=== PATIENT | female | born 1955 | race Caucasian/White ===

== ENCOUNTER 2023-01-04 06:39 | Day surgery (SDC) | payer MEDICARE, OTHER, SELFPAY ==
--- NOTE | 2023-01-04 | PATH_ITS ---
[facility] Accession Number: [id number] No. of containers..04 Tissue . 01 Material submitted: . PART A: esophagus, E-G Junction - GE JUNCTION PART B: esophagus - ESOPHAGUS PART C: colon - TRANSVERSE PART D: rectum - RECTUM . 01 Diagnosis: A. Gastroesophageal Junction, Biopsy: Squamocolumnar junctional mucosa with reactive features of reflux esophagitis. Up to 50 eosinophils per high power field. Negative for specialized intestinal metaplasia, dysplasia or malignancy. . B. Esophagus, Biopsy: Squamous epithelium with increased intraepithelial eosinophils (up to 16 eosinophils per high power field). Please see comment. Negative for dysplasia and malignancy. . C. Transverse Colon: Tubular adenoma. . D. Rectum: Fragments of tubular adenoma. [facility] 01/07/2023 1245 Local . 01 Comment: B) In the proper clinical setting, the histopathologic appearance would support a clinical impression of eosinophilic esophagitis. The differential diagnosis includes drug reaction, gastroesophageal reflux, and food allergies. . . 01 Electronically signed: . Nick Rowland MD, PhD, Pathologist NPI- [id number] . 01 Gross description: . Part A: GE JUNCTION: Received in formalin are 2 fragment(s) of wise, soft tissue measuring 0.3 x 0.2 x 0.2 cm to 0.2 x 0.1 x 0.1 cm submitted entirely in 1 cassette(s) Part B: ESOPHAGUS: Received in formalin is 1 fragment(s) of wise, soft tissue measuring 0.3 x 0.2 x 0.1 cm submitted entirely in 1 cassette(s) Part C: TRANSVERSE: Received in formalin is 1 fragment(s) of wise, soft tissue measuring 0.2 x 0.2 x 0.2 cm submitted entirely in 1 cassette(s) Part D: RECTUM: Received in formalin are multiple fragment(s) of wise, soft tissue measuring 1.6 x 0.7 x 0.1 cm in aggregate submitted entirely in 1 cassette(s) /CPE 01/05/2023 0642 Local . 01 Pathologist provided ICD-10: K20.0, D12.3, D12.8 . 01 CPT . 839659, 415047, 381017, 943148 Specimen Comment: A courtesy copy of this report has been sent to [phone] Performed at: 01 [facility] [address] [place] [id number] MD Wilner Siddiqi MD Phone: [phone]
[2023-01-04 07:11] VITALS: BP 149/82; PULSE 65; RESP 15; TEMP 36.3; O2SAT 96; BMI 41.9
[2023-01-04] MEDS: LACTATED RINGERS 1,000 ML 200 ML IV (07:18)
--- NOTE | 2023-01-04 07:43 | PM.HP.1 ---
History of Present Illness History of Present Illness Date Patient Seen: 01/04/23 Time Patient Seen: 07:43 Chief complaint: EGD/Colonoscopy Narrative: 67-year-old woman here for EGD and colonoscopy. EGD is for workup of globus sensation and she needs a screening colonoscopy. Please refer to the H and P from October 2022 for further detail. No interval changes in health. Patient History Medical History (Updated 12/23/22 @ 08:37 by Gisella Corbin RN) Diverticulosis GERD (gastroesophageal reflux disease) Surgical History (Updated 01/04/23 @ 07:07 by Ernesto Montague RN) H/O hand surgery Hx of colonoscopy (2017) S/P tubal ligation Family & Social History Family History Sister Hypertension Social History: household members spouse lives independently Yes Tobacco & Substance use: Smoking Status Never smoker alcohol intake current alcohol intake frequency a few times a week Substance Use Type does not use Meds Home Medications and Allergies Home Medications Medication Instructions Recorded Confirmed Type atenolol 50 mg tablet BID ##0 03/29/17 11/12/22 History hydrochlorothiazide 25 mg tablet mg QAM ##0 03/29/17 11/12/22 History hydroxyzine HCl PO 11/12/22 11/12/22 History losartan PO 11/12/22 11/12/22 History lansoprazole 30 mg capsule,delayed mg 01/04/23 History release Allergies Allergy/AdvReac Type Severity Reaction Status Date / Time aspirin [ASPIRIN] AdvReac Mild UPSET Verified 01/04/23 07:07 STOMACH metformin [METFORMIN] AdvReac Mild LIGHTHEADED, Verified 01/04/23 07:07 FAINT tetracycline [TETRACYCLINE] AdvReac Mild UPSET Verified 01/04/23 07:07 STOMACH venlafaxine [From EFFEXOR] AdvReac Mild SUICIDAL Verified 01/04/23 07:07 THOUGHTS Exam Vital Signs (past 8 hours): - 01/04/23 07:11 Temperature 97.3 F L Pulse Rate 65 Respiratory Rate 15 Blood Pressure 149/82 H Pulse Oximetry 96 Oxygen Delivery Method Room Air Oxygen Delivery Method Room Air Narrative Exam Narrative: General adult alert oriented no acute distress Assessment & Plan Assessment and plan (1) Globus sensation: Status: Acute Assessment & Plan narrative: 67-year-old with globus sensation here for EGD and screening. Overview of the procedurese discussed. Operative risks bleeding missed diagnosis intestinal injury discussed. Questions have been answered she is agreement with this plan. Time Spent With Patient Critical Care time: I spent a total of [] minutes of critical care time on this patient's care today; this time is exclusive of procedural time.
[2023-01-04 08:22] VITALS: BP 123/68; PULSE 72; RESP 16; TEMP 37.4; O2SAT 95
--- NOTE | 2023-01-04 08:24 | PM.OP.EC ---
Operative Date/Time/Diagnoses Date of procedure: 01/04/23 Time of procedure: 08:24 Pre-op diagnosis: Globus sensation, colorectal screening, personal history of colonic polyps Post-op diagnosis: other (Colonic polyps) Procedure & Clinicians Study performed: Esophagoduodenoscopy and colonoscopy with biopsy and polypectomy Same procedure as scheduled: Yes Indications: 67-year-old woman with globus sensation here for EGD and screening colonoscopy Surgeon: Wale Self Procedure Notes Procedure in detail: The history and physical was performed/updated and the patient is ASA class is 2. The procedure was discussed in detail with the patient. Potential risks complications including infection, bleeding, missed diagnosis, perforation, need for surgery, and were explained. Their questions were answered and informed consent was obtained. Patient placed in left lateral decubitus position. Time out was performed. Procedural sedation was administered by Anesthesia. A bite block was placed. the scope was inserted into the mouth and advanced through the esophagus and into the stomach. The stomach was without masses, ulcers or gastritis. The pylorus was intubated and the duodenum was normal to the 2nd portion. The scope was retroflexed within the stomach and there was no hiatal hernia. The scope was withdrawn into the esophagus the Z line was seen at 40 cm from the incisions. Biopsy of the GE junction was performed with forceps. Additional biopsies of the esophagus were performed with forceps. There was no gross evidence of Sprague's esophagitis, esophageal masses or strictures. Stomach was desufflated and scope removed. Examination began with a thorough inspection of the perianal area there was no evidence of fissures, fistulae, external hemorrhoids or cutaneous malignancy. The colonoscopy scope was then placed into the anal canal and was advanced to the cecum, which was identified by the ileocecal valve, the appendiceal orifice and the confluence of the taenia. The scope was then slowly withdrawn examining colon thoroughly in all directions, irrigating it of any residual stool. Within the transverse colon there was a 5 mm polyp removed with biopsy forceps Sigmoid colon was notable for diverticulosis Within the rectum there were 2 polyps removed with cold snare both less than 1 cm in diameter. * The patient tolerated the procedure well. They will be discharged once criteria are met. The prep was of fair quality. The withdrawl time was a minutes. Specimen(s): other (GE junction, esophagus, transverse colon polyp, rectal polyps x2) Impression: Colonic polyps Post-procedure Plan for aftercare: Follow-up is dependent on pathology findings. Disposition: same day surgery
[2023-01-04 08:28] VITALS: BP 116/75; PULSE 74; RESP 14; O2SAT 95
[2023-01-04 08:34] VITALS: BP 129/76; PULSE 66; RESP 20; O2SAT 94
== END 2023-01-04 08:51 | disposition home or self-care (01) ==
PROVIDERS: PCP Nurse Practitioner Family; Referring Provider Surgery; Visit Provider Surgery
PROC: 0DJ08ZZ Inspection of Upper Intestinal Tract, Via Natural or Artificial Opening Endoscopic (ICD-10-PCS; CPT 43235; principal; 2023-01-04 07:45)
PROC: 0DJD8ZZ Inspection of Lower Intestinal Tract, Via Natural or Artificial Opening Endoscopic (ICD-10-PCS; CPT 45378; 2023-01-04 07:45)
DX: Z12.11 Encounter for screening for malignant neoplasm of colon (principal); Z86.010 Personal history of colon polyps; F45.8 Other somatoform disorders; K57.30 Diverticulosis of large intestine without perforation or abscess without bleeding; D12.3 Benign neoplasm of transverse colon; D12.8 Benign neoplasm of rectum
CPT/HCPCS: 45380; 43239; J2704

== ENCOUNTER 2023-01-17 07:44 | Day surgery (SDC) | payer MEDICARE, OTHER, SELFPAY ==
[2022-12-23 08:34] VITALS: BMI 43.2
--- NOTE | 2023-01-17 | PATH_ITS ---
[facility] Accession Number: [id number] No. of containers..03 Tissue . 01 Material submitted: . PART A: endocervix - ENDOCERVICAL POLYP PART B: endometrium - ENDOMETRIAL POLYP PART C: endometrium - ENDOMETRIAL CURETTINGS . 01 Diagnosis: A. Endocervical Polyp, Polypectomy: Weakly proliferative endometrium in association with lower uterine segment endometrial polyp. No evidence of endometrioid intraepithelial neoplasia or malignancy. . B. Endometrial Polyp, Polypectomy: Weakly proliferative endometrium in association with endometrial polyp(s). No evidence of endometrioid intraepithelial neoplasia or malignancy. . C. Endometrium, Curettage: Predominantly mucoinflammatory debris with mixed strips of benign endocervical cells/epithelium, strips of benign squamous epithelium, and a fragment of benign appearing possible upper endocervical mucosa/lower uterine segment endometrial glandular epithelium. No evidence of dysplasia, significant atypia, or malignancy. [facility] 01/21/2023 0938 Local . 01 Electronically signed: . Nara Camarena MD, Pathologist NPI- [id number] . 01 Gross description: . Part A: ENDOCERVICAL POLYP: Received in formalin is 1 fragment(s) of wise, soft tissue measuring 1.0 x 0.4 x 0.1 cm submitted entirely in 1 cassette(s) Part B: ENDOMETRIAL POLYP: Received in formalin is 1 fragment(s) of wise, soft tissue measuring 2.0 x 1.2 x 0.5 cm which is bisected and submitted entirely in 1 cassette(s) Part C: ENDOMETRIAL CURETTINGS: Received in formalin are minute fragments of mucoid and hemorrhagic material measuring 2.5 x 1.0 x 0.1 cm in aggregate. Submitted in toto in 1 cassette. /CPE 01/19/2023 0600 Local . 01 Pathologist provided ICD-10: N84.0 . 01 CPT . 945926, 932784, 731279 Specimen Comment: A courtesy copy of this report has been sent to [phone] Performed at: [address] [id number] MD Wilner Siddiqi MD Phone: [phone]
[2023-01-17 08:07] VITALS: BP 152/77; PULSE 70; RESP 16; TEMP 36.4; O2SAT 96; BMI 43.2
[2023-01-17] MEDS: LACTATED RINGERS 1,000 ML 100 ML IV (08:20)
--- NOTE | 2023-01-17 09:38 | PM.GYNHP.1 ---
History of Present Illness History of Present Illness Reason for admission: vaginal bleeding (Postmenopausal, endometrial polyp) Narrative: Marita Jasso is a 67 year old female 2 para 2 with an enlarging endometrial polyp. She presents for a D&C hysteroscopy with polypectomy. [facility] Medical History (Updated 12/23/22 @ 08:37 by Gisella Corbin RN) Diverticulosis GERD (gastroesophageal reflux disease) Surgical History (Updated 01/04/23 @ 07:07 by Ernesto Montague RN) H/O hand surgery Hx of colonoscopy (2018) S/P tubal ligation Family History Sister Hypertension Social History marital status: household members: spouse lives independently: Yes occupational status: previously employed Smoking Status: Never smoker alcohol intake: current Meds Home Medications and Allergies Home Medications Medication Instructions Recorded Confirmed Type atenolol 50 mg tablet 50 mg PO BID ##0 03/29/17 01/17/23 History hydrochlorothiazide 25 mg tablet 25 mg PO QAM ##0 03/29/17 01/17/23 History hydroxyzine HCl 50 mg PO DAILY 11/12/22 01/17/23 History lansoprazole 30 mg capsule,delayed 30 mg PO DAILY 01/04/23 01/17/23 History release irbesartan 150 mg tablet 150 mg PO DAILY 01/17/23 01/17/23 History Allergies Allergy/AdvReac Type Severity Reaction Status Date / Time aspirin [ASPIRIN] AdvReac Mild UPSET Verified 01/17/23 08:00 STOMACH metformin [METFORMIN] AdvReac Mild LIGHTHEADED, Verified 01/17/23 08:00 FAINT tetracycline [TETRACYCLINE] AdvReac Mild UPSET Verified 01/17/23 08:00 STOMACH venlafaxine [From EFFEXOR] AdvReac Mild SUICIDAL Verified 01/17/23 08:00 THOUGHTS Exam Vital Signs (past 8 hours): - 01/17/23 08:07 Temperature 97.6 F Pulse Rate 70 Respiratory Rate 16 Blood Pressure 152/77 H Pulse Oximetry 96 Oxygen Delivery Method Room Air Oxygen Flow Rate 0 Oxygen Delivery Method Room Air Oxygen Flow Rate 0 Narrative Exam Narrative: HEENT: No thyromegaly, no anterior cervical or supraclavicular lymphadenopathy. Lungs:Clear to auscultation bilaterally, no wheezes. Cardiovascular: Regular rate and rhythm, no murmurs, rubs, or gallops. Abdomen: Well-healed scar. No hepatosplenomegaly. No masses palpable. External genitalia: Normal Vagina: Normal Cervix: Normal, parous Bimanual exam: [8 Week size uterus. Mobile.] Extremities: No edema Assessment & Plan Assessment & Plan narrative: Assessment: 67-year-old 2 para 2 with postmenopausal bleeding and an enlarging endometrial polyp Plan: D&C hysteroscopy with polypectomy Risks, benefits, and alternatives to the procedure were explained to the patient. The risks including bleeding, infection, and uterine perforation. She understands these risks and agrees to proceed. A full par Q was held and consent form was signed. Time Spent With Patient Time with patient: less than 30 minutes
--- NOTE | 2023-01-17 09:41 | PM.PREOP ---
Pre-operative Note COVID-19 Criteria for continued procedure: Non-surgical alternatives not available or appropriate per current SOC Interval Note History & Physical reviewed/Exam performed by Physician: Yes Changes to H&P: No H&P completed within 30 days and has changed as indicated here:: January 17, 2023
--- NOTE | 2023-01-17 10:27 | SUR.OPER ---
Lithotomy on padded OR bed, head on pillow, arms secured on padded arm boards at <90 degrees abduction. Legs secured in padded yellow fins stirrups. Patient voided at 1008 prior to entering OR.
[2023-01-17 10:48] VITALS: BP 161/84; PULSE 66; RESP 12; TEMP 36.4; O2SAT 91
--- NOTE | 2023-01-17 10:48 | PM.GYNOP.1 ---
Operative Date/Time/Diagnoses Date of procedure: 01/17/23 Time of procedure: 10:48 Pre-op diagnosis: Postmenopausal bleeding Enlarging endometrial polyp Post-op diagnosis: same Procedure & Clinicians Procedure: Procedures Operation Date: 01/17/23 09:45 Actual Procedure Side Surgeon p Hysteroscopy D&C,Polypectomy with removal of endo Ilda Holguin MD Indications: Postmenopausal bleeding Enlarging endometrial polyp Surgeon: Ilda Holguin Anesthesia Type: General (LMA) Operative Notes Findings: 8 week size anteverted uterus Large endometrial polyp arising from the fundus of the uterus Both fallopian tube ostia observed Small endocervical polyp Closure Type: not applicable Specimen(s): endometrial curettings, endometrial polyp and other (Endocervical polyp) Estimated blood loss (mL): 5 Blood products transfused: none Procedure in detail: After informed consent was obtained, the patient was taken to the operating room where she was placed in the dorsal supine position. After adequate LMA general anesthesia was achieved, she was placed in the dorsal lithotomy position, and prepped and draped in the usual sterile fashion. A time-out was performed. A bivalve speculum was placed into the vagina and the anterior lip of the cervix was grasped with a single-tooth tenaculum. There was a small polyp coming from the endocervix. This was grasped with a polyp forceps and removed. The cervix was sequentially dilated to the #9 Hegar dilator. The hysteroscope passed easily into the endometrial cavity. Initial inspection with the hysteroscope revealed a large endometrial polyp arising from the fundus of the uterus and extending all the way down to the internal cervical os. The hysteroscope was removed from the uterus. Using a polyp forceps, the large endometrial polyp was grasped and removed in 1 piece. The resectoscope was then placed into the endometrial cavity. The base of the polyp was then resected using the resectoscope with settings at 80 cut and 60 cautery. Hemostasis was achieved. The resectoscope was removed from the uterus. Gentle sharp curettage was performed yielding a small amount of endometrial curettings. The instruments were removed from the uterus. The single-tooth tenaculum was removed from the anterior lip of the cervix. The bivalve speculum was removed from the vagina. Sponge, lap, and instrument counts were correct x2. The patient tolerated the procedure well, and was taken to PACU in stable condition. Complications: none Post-operative Condition: stable Disposition: PACU Plan for aftercare: Home after recovery
[2023-01-17 10:53] VITALS: BP 153/82; PULSE 65; RESP 16; O2SAT 95
[2023-01-17 11:00] VITALS: BP 170/68; PULSE 64; RESP 16; O2SAT 95
[2023-01-17 11:05] VITALS: BP 156/85; PULSE 68; RESP 16; TEMP 36.4; O2SAT 95
[2023-01-17] MEDS: OXYCODONE IR 5 MG TABLET PO (11:06)
[2023-01-17 11:11] VITALS: BP 161/76; PULSE 65; RESP 16; TEMP 36.4; O2SAT 95
== END 2023-01-17 11:32 | disposition home or self-care (01) ==
PROVIDERS: PCP Nurse Practitioner Family; Referring Provider Obstetrics & Gynecology; Visit Provider Obstetrics & Gynecology
PROC: 0UDB8ZZ Extraction of Endometrium, Via Natural or Artificial Opening Endoscopic (ICD-10-PCS; CPT 58558; principal; 2023-01-17 09:45)
DX: N95.0 Postmenopausal bleeding (principal); N84.0 Polyp of corpus uteri; N84.1 Polyp of cervix uteri
CPT/HCPCS: 58558; 82962; J1100; J2405; J2704; J3010